=== PATIENT | male | born 1980 | race Caucasian/White ===

== ENCOUNTER 2025-03-28 08:48 | Outpatient (REF) | payer OTHER, SELFPAY ==
--- OUTSIDE RECORDS SUMMARY | 2025-03-28 09:10 | XMS_ITS | Clinical Summary ---
Author Organization [employer] Address [address] [facility] [address] [place] [address] Care Team Providers Care Circus Artist Name Role Phone Shi Diamond MD Primary Care Provider + Allergies No known active allergies Medications Diclofenac Sodium 1 % gel Apply 1 inch topically if needed in the morning and at bedtime (pain). 60 g 5 04/26/20 25 Active acetaminophen (Tylenol Extra Strength) 500 MG tablet Take 1 tablet (500 mg) by mouth every 6 (six) hours if needed for mild pain. 120 tablet 5 04/26/20 25 Active Active Problems Problem Noted Date Diagnosed Date IGT (impaired glucose tolerance) 03/27/2025 Assessment & Plan (03/27/2025 9:57 AM EDT): A1c is at goal. I have discussed with patient regarding increasing physicial activity and decrease calorie intake Check A1c q6-12m Order labs, refer to dietitian Class 3 severe obesity due t o excess calories without serious comorbidity with body mass index (BMI) of 40.0 to 44.9 in adult 03/27/2025 Assessment & Plan (03/27/2025 9:55 AM EDT): Discussed re weight reduction options including exercise, life style modifications, diet. Recommended to decrease soda and sugary beverage consumption, increase protein intake with meals (at least 1 portion of protein with each meal) to assist with satiety, increase dietary fiber Recommended at least 150 min/week of moderate intensity exercise. Refer to dietitian Encounters Date Type Department Care Team Description 03/27/2025 9:15 AM EDT Office Visit [facility] [address] [place] [phone] Shi Diamond MD IGT (impaired glucose tolerance) (Primary Dx); Class 3 severe obesity due to excess calories without serious comorbidity with body mass index (BMI) of 40.0 to 44.9 in adult; Dietary counseling; Exercise counseling; Witnessed episode of apnea 03/27/2025 Travel 03/26/[address] [phone] Shi Diamond MD 03/23/[address] [phone] Shi Diamond MD chart prep 03/19/2025 Patient Outreach [place] [phone] Shi Diamond MD Pre-visit Planning (SDOH screening negative and tobacco screening negative) from Last 3 Months Social History Tobacco Use Types Packs/Day Years Used Date Smoking Tobacco: Never Passive Smoke Exposure: Never Smokeless Tobacco: Never Tobacco Cessation:Counseling Given: Not Answered Alcohol Use Standard Drinks/Week Comments Yes 0 (1 standard drink = 0.6 oz pur e alcohol) social Depression Answer Date Recorded Patient Health Questionnaire-9 Score 7 03/27/2025 Patient Health Questionnaire-9 Score 7 03/27/2025 Last PHQ-9: Questionnaire Data Not on file 0 03/27/2025 Housing Stability Answer Date Recorded What is your housing situation today? I have [place] 03/19/[address] you li ve. Do you have problems with any of the following? None of the above 03/19/2025 Food Insecurity Answer Date Recorded Within the past 12 months, y ou worried that your food would run out before you got money to buy more: Never True 03/19/2025 Within the past 12 months,th e food you bought just didn't last and you didn't have enough money to get more: Never True Transportation Answer Date Recorded In the past 12 months, has l ack of transportation kept you from medical appts, meetings, work or from getting things needed for daily living? No 03/19/2025 Utilities Answer Date Recorded In the past 12 months, has t he electric, gas, oil or water company threatened to shut off services in your home? No 03/27/2025 Depression Answer Date Recorded Patient Health Questionnaire-2 Score 2 03/27/2025 Internet Access Answer Date Recorded Internet Access Q1 Yes 03/19/2025 Internet Access Q2 Not on file 03/19/2025 Sex and Gender Information Value Date Recorded Sex Assigned at Male 11/17/2024 11:43 AM EDT Legal Sex Male 11:41 AM EDT Gender Identity Male 11/17/2024 11:43 AM EDT Sexual Orientation Straight 11/17/2024 11 :43 AM EDT Last Filed Vital Signs Vital Sign Reading Time Taken Comments Blood Pressure 130/80 03/27/2025 9:15 AM EDT Pulse 86 03/27/2025 9:15 AM EDT Temperature 37.5 C (99.5 F) 03/27/2025 9:15 AM EDT Respiratory Rate 19 03/27/2025 9:15 AM EDT Oxygen Saturation - - Inhaled Oxygen Concentration - - Weight 140 kg (308 lb 8 oz) 03/27/2025 9:15 AM E DT Height 177.8 cm (5' 10 ) 03/27/2025 9:15 AM EDT Body Mass Index 44.27 03/27/2025 9:15 AM EDT Plan of Treatment Health Maintenance Due Date Last Done Comments HIV Screening 1982 Lipid Panel 1982 Alcohol/Substance Use Screening 1994 Family Planning (PISQ) 1997 HPV Vaccines (1 - Male 3-dos e series) 1997 Hepatitis C Screening 2000 DTaP/Tdap/Td Vaccines (1 - Tdap) 2001 Hepatitis B Vaccines (1 of 3 - 19+ 3-dose series) 2001 COVID-19 Vaccine ( - 2023-2 5 season) 2024 Influenza Vaccine (#1) 2025 Depression Screening 03/27/2026 03/27/2025, 03/27/2025 Disability Screening 03/27/2026 03/27/2025 SDOH Screening 03/27/2026 03/27/2025 Tobacco Screening 03/27/2026 03/27/2025 Zoster Vaccines (1 of 2) 2032 RSV Patients and Patients Aged 60 years or older (1 - 1-dose 75+ series) 2057 HIB Vaccines Aged Out No longer eligi ble based on patient's age to complete this topic Hepatitis A Vaccines Aged Out No long er eligible based on patient's age to complete this topic IPV Vaccines Aged Out No longer eligi ble based on patient's age to complete this topic Meningococcal B Vaccine Aged Out No l onger eligible based on patient's age to complete this topic Meningococcal Vaccine Aged Out No rene dioni eligible based on patient's age to complete this topic Pneumococcal Vaccine: Pediatrics (0 to 5 Years) and At-Risk Patients (6 to 49) Years Aged Out No longer eligible b ased on patient's age to complete this topic RSV under 20 months Aged Out No longe r eligible based on patient's age to complete this topic Rotavirus Vaccines Aged Out No longer eligible based on patient's age to complete this topic Insurance [employer] Care Teams Circus Artist Relationship Specialty Start Date End Date Shi Diamond MD [address] [place] [phone] PCP - General Internal Medicine 03/27/25
[2025-03-28 11:23] LABS: MANUAL DIFF FLAG NO
[2025-03-28 11:38] LABS: Hematocrit 44.9 % (42.0-52.0); Hemoglobin 14.5 g/dl (14.0-18.0); Imm Gran Abs Auto 0.02 X10*3/uL (0.00-0.03); Imm Gran Pct Auto 0.2 % (0.0-0.4); Lymphocytes Absolute Auto 2.3 X10*3/uL (1.2-4.9); Mean Corpuscular HGB Conc 32.3 g/dl (31.0-36.0); Mean Corpuscular Hemoglobin 28.1 pg (27.0-33.0); Mean Corpuscular Volume 87.0 fL (80.0-98.0); NRBC Abs Auto 0.000 X10*3/uL (0.0-0.012); NRBC Pct Auto 0.0 /100WBC (0.0-0.2); Platelet Count 347 X10*3/uL (160-400); Red Blood Count 5.16 X10*6/uL (4.60-5.80); White Blood Count 8.9 X10*3/uL (4.8-10.8)
[2025-03-28 12:21] LABS: HBS Num1 0.13 mIU/mL (0-7.99); HBc Num1 0.06 S/CO (0.00-0.79); HBsAGNum1 0.36 S/CO (0.00-0.99); HIV Num 1 0.08 S/CO (0.00-0.99); Hepatitis A Antibody IgM 0.13 Index (0-0.79); Hepatitis B Surface Antigen Negative (Negative); ~HepC Num1 0.32 S/CO (0.00-0.79); ~Hepatitis A Antibody IgM Nonreactive (Nonreactive); ~Hepatitis B Surface Antibody NONREACTIVE (Nonreactive); ~Hepatitis C Antibody Nonreactive (Nonreactive)
[2025-03-28 12:32] LABS: Alanine Aminotransferase 27 U/L (0-40); Albumin Level 4.0 g/dL (3.5-5.0); Alkaline Phosphatase 83 U/L (39-117); Anion Gap 10 (12-20); Aspartate Amino Transferase 21 U/L (5-37); Blood Urea Nitrogen 12 mg/dL (9-16); Calcium 8.4 mg/dL (8.4-10.2); Carbon Dioxide 29 mmol/L (22-29); Chloride 102 mmol/L (96-108); Cholesterol 144 mg/dL (<200); Estimated Glomerular Filt Rate > 60; HDL Cholesterol 55 mg/dL (>40); Potassium 4.0 mmol/L (3.3-5.1); Sodium 137 mmol/L (135-145); Total Protein 7.1 g/dL (6.5-8.0); Triglycerides 86 mg/dL (<150)
[2025-03-28 12:55] LABS: Hemoglobin A1C 167.2315 umol/L; Total Hemoglobin (HGBA1C) 3807.8930 umol/L
[2025-03-28 14:03] LABS: Reflex LDLD? No
== END 2025-03-28 08:49 | disposition home or self-care (01) ==
LOC: HO.HHCL 08:48
PROVIDERS: PCP Internal Medicine; Visit Provider Internal Medicine
DX: Z11.4 Encounter for screening for human immunodeficiency virus [HIV] (principal); Z11.59 Encounter for screening for other viral diseases; E66.813 Obesity, class 3; Z68.41 Body mass index [BMI] 40.0-44.9, adult; R73.02 Impaired glucose tolerance (oral); R06.81 Apnea, not elsewhere classified
CPT/HCPCS: 36415; 80053; 80061; 82306; 83036; 84443; 85025; 86704; 86706; 86709; 86803; 87340; 87389